=== PATIENT | female | born 1935 | race Caucasian/White ===

== ENCOUNTER → 2016-12-07 | Outpatient (CLI) | payer MEDICARE, BC ==
[~2016-12-07] MED LIST: ASPIRIN81 MG PO; DULCOLAX5 MG PO; GAS-X80 MG PO; LIPITOR TAB 1010 MG PO; OMEPRAZOLE20 MG PO; PROBIOTIC1 EAC1 PO; TENORMIN 25 MG25 MG PO
== END ==
LOC: LAB 15:58
DX: R10.32 Left lower quadrant pain (principal)
CPT/HCPCS: 36415; 82565; 84520

== ENCOUNTER → 2016-12-09 | Outpatient (CLI) | payer MEDICARE, BC | LOC: CT 09:00 | DX: R10.32 Left lower quadrant pain (principal) ==

== ENCOUNTER → 2016-12-13 | Outpatient (CLI) | payer MEDICARE, BC | LOC: LAB 13:54 | DX: R10.32 Left lower quadrant pain (principal) | CPT/HCPCS: 36415; 82565; 84520 ==

== ENCOUNTER → 2016-12-16 | Outpatient (CLI) | payer MEDICARE, BC | LOC: CT 08:41 | DX: R10.30 Lower abdominal pain, unspecified (principal); K57.30 Diverticulosis of large intestine without perforation or abscess without bleeding; M54.5 Low back pain; K56.69 Other intestinal obstruction; K44.9 Diaphragmatic hernia without obstruction or gangrene; K57.90 Diverticulosis of intestine, part unspecified, without perforation or abscess without bleeding ==

== ENCOUNTER 2017-03-07 18:35 | Emergency (ER) | payer MEDICARE, BC ==
[2017-03-07 19:41] LABS: HEMOGLOBIN 12.9 gm/dl (12.3-15.3); RED BLOOD COUNT 4.28 M/UL (4.00-5.10); WHITE BLOOD COUNT 9.8 K/UL (4.5-11.0)
[2017-03-07 20:00] LABS: BUN/CREATININE RATIO 13 (0-10)
== END 2017-03-08 00:30 | disposition home or self-care (01) ==
LOC: ER1 18:35
PROVIDERS: Student in an Organized Health Care Education/Training Program
DX: K57.92 Diverticulitis of intestine, part unspecified, without perforation or abscess without bleeding (principal); N30.01 Acute cystitis with hematuria; E78.5 Hyperlipidemia, unspecified; I10 Essential (primary) hypertension; C44.90 Unspecified malignant neoplasm of skin, unspecified; Z88.0 Allergy status to penicillin; Z88.1 Allergy status to other antibiotic agents
CPT/HCPCS: 36415; 80053; 81001; 83605; 83690; 85025; 87086; 96374; 99284; J1956